=== PATIENT | female | born 2005 | race Caucasian/White ===

== ENCOUNTER 2024-01-02 09:23 | Outpatient (REF) | payer BC, SELFPAY | END 2024-01-02 09:24 | disposition home or self-care (01) | LOC: HO.UMASIMG 09:23 | PROVIDERS: Visit Provider Nurse Practitioner | DX: Z13.89 Encounter for screening for other disorder (principal) | CPT/HCPCS: 76830; 76856 ==

== ENCOUNTER 2024-01-09 07:42 | Outpatient (REF) | payer BC, SELFPAY ==
--- NOTE | ~2024-01-09 | US_ITS ---
EXAMINATION: US PELVIS CLINICAL INFORMATION: Irregular menses, assess IUD. COMPARISON: None available. TECHNIQUE: Ultrasound of the pelvis is performed using both transabdominal and transvaginal transducers along with Doppler. Transvaginal imaging is performed due to inadequate visualization transabdominally. FINDINGS: The uterus measures 6.1 x 2.6 x 3.4 cm. No discrete fibroids identified. Endometrial thickness is 3 mm. No significant free fluid. IUD in place within the endometrial cavity. Visualization of the endometrium is limited due to shadowing from the IUD. Right ovary measures 4.2 x 1.8 x 2.8 cm, volume 7.4 mL. Left ovary measures 2.9 x 2.6 x 3.2 cm, volume 12.9 mL. The bilateral ovaries are prominent with multiple small peripheral follicles, which can sometimes be seen with polycystic ovarian syndrome. Correlation with clinical and laboratory exam recommended to determine further management. US/US pelvic and transvaginal IMPRESSION: 1. IUD in place within the endometrial cavity. Visualization of the endometrium is limited due to shadowing from the IUD. 2. The bilateral ovaries are prominent with multiple small peripheral follicles, which can sometimes be seen with polycystic ovarian syndrome. Correlation with clinical and laboratory exam recommended to determine further management.
== END 2024-01-09 07:43 | disposition home or self-care (01) ==
LOC: HO.UMASIMG 07:42
PROVIDERS: Visit Provider Nurse Practitioner
DX: N94.6 Dysmenorrhea, unspecified (principal); N93.0 Postcoital and contact bleeding
CPT/HCPCS: 76830; 76856

== ENCOUNTER 2024-02-25 09:41 | Outpatient (REF) | payer BC, SELFPAY ==
--- NOTE | ~2024-02-25 | US_ITS ---
EXAMINATION: US PELVIS COMPLETE CLINICAL INFORMATION: Postcoital bleeding COMPARISON: Pelvic ultrasound 12/20/2023 TECHNIQUE: Transabdominal and transvaginal imaging was performed. FINDINGS: The uterus is of normal size and echogenicity measuring 7.0 x 2.4 x 3.9 cm. A regular homogeneous endometrium is identified measuring 0.7 cm. Intrauterine device in place. Both ovaries are mildly enlarged with a volume of 11.2 mL on the right and 10.1 mL on the left with multiple follicles present which could be seen in the setting of polycystic ovarian syndrome in the appropriate clinical setting. There is no pelvic free fluid. US/US pelvic and transvaginal IMPRESSION: 1. Intrauterine device in place. 2. Both ovaries are mildly enlarged with multiple follicles present which could be seen in the setting of polycystic ovarian syndrome in the appropriate clinical setting.
== END 2024-02-25 09:42 | disposition home or self-care (01) ==
LOC: HO.UMASIMG 09:41
PROVIDERS: Visit Provider Registered Nurse
DX: N93.0 Postcoital and contact bleeding (principal); N94.10 Unspecified dyspareunia
CPT/HCPCS: 76830; 76856